=== PATIENT | female | born 2000 | race Caucasian/White ===

== ENCOUNTER 2023-10-04 19:46 | Emergency (ER) | payer BC ==
[2023-10-04 20:07] VITALS: BP 143/95; O2SAT 100
[2023-10-04] MEDS: BACITRACIN ZINC OINT 1 PACKET TOP STA (20:41)
[2023-10-04] MEDS: oxyCODONE 5 MG TABLET PO STA (20:41)
--- NOTE | 2023-10-04 20:58 | ED Physician Documentation ---
PD HPI MAJOR BURN - Stated complaint Stated Complaint: R ARM BURN - Chief complaint Chief Complaint: Burn - History obtained from History obtained from: Patient - Additional information Additional information: Patient is a 23-year-old female with no significant past medical history presenting for evaluation of burn to her right forearm that occurred just prior to arrival. Patient was moving a crockpot and reports that some broth spilled onto her arm. She has been washing the arm in cold water which has been helping with the pain. Her tetanus is up-to-date as she recalls receiving 1 before garcia mejía for [employer]. She is left-hand dominant. Review of Systems Constitutional: denies: Fever Skin: reports: Other (Burn) PD PAST MEDICAL HISTORY - Past Medical History Past Medical History: No - Past Surgical History Past Surgical History: No - Present Medications Home Medications: Ambulatory Orders Medication Instructions Recorded Confirmed Bacitracin Zinc Oint 1 applic TOP BID #1 each 10/04/23 Levonorgestrel/Ethin.estradiol 1 each PO DAILY 10/04/23 10/04/23 [Kurvelo-28 Tablet] Oxycodone HCl/Acetaminophen 1 each PO Q6H PRN #14 tablet 10/04/23 [Percocet 5-325 mg Tablet] - Allergies Allergies/Adverse Reactions: Allergies Allergy/AdvReac Type Severity Reaction Status Date / Time amoxicillin Allergy Hives Verified 10/04/23 20:00 latex Allergy Hives Verified 10/04/23 20:00 - Social History Does the pt smoke?: No Smoking Status: Never smoker Does the pt drink ETOH?: Yes Does the pt have substance abuse?: No - Immunizations Immunizations are current?: Yes - POLST Patient has POLST: No PD ED PE NORMAL - General General: Alert and oriented X 3, No acute distress, Well developed/nourished - HEENT HEENT: Atraumatic - Neck Neck: Supple, no meningeal sign - Cardiac Cardiac: Strong equal pulses - Respiratory Respiratory: No respiratory distress - Extremities Extremities: Other (Blanching erythema to distal forearm on volar and dorsal aspects, no blistering,patient has good range of motion at wrist, No hand or digit Involvement, Compartments soft) - Neuro Neuro: Alert and oriented X 3, No motor deficit, No sensory deficit, Normal speech PD BURN EXAM RULE OF 9S - TBSA Calculation Adult rule of 9s: 1 - Supraficial - 1st 2 - Supraficial - 1st Estimated TBSA: 2 Results - Vitals Vitals: Vital Signs - 24 hr 10/04/23 10/04/23 19:56 21:10 Temperature 36.7 C Heart Rate 93 90 Respiratory 18 18 Rate Blood Pressure 143/95 H O2 Saturation 100 100 Oxygen O2 Source Room air PD Medical Decision Making - ED course Complexity details: re-evaluated patient ED course: Patient is a 23-year-old female presenting for evaluation of burn to right forearm from hot liquid. No involvement of the hand. Good range of motion at left wrist. No blister formation so appears to be a superficial injury.No areas for debridement at this time. Although it is Circumferential around the distal forearm it appears to be a superficial injury at this time with blanching erythema and no blister formation. Bacitracin applied as well as a dressing. Patient given oxycodone for pain control.Neurovascularly intact. Counseled on need for close follow-up as well as strict return precautions for any worsening symptoms. Departure - Departure Disposition: 01 Home, Self Care Clinical Impression: Burn of right forearm Qualifiers: Encounter type: initial encounter Burn degree: superficial (1st degree) Qualified Code(s): T22.111A - Burn of first degree of right forearm, initial encounter Condition: Stable Instructions: ED Burn Scald Follow-Up: [facility] [place] [Provider Group] - Within 3 Days Prescriptions: Bacitracin Zinc Oint 1 applic TOP BID #1 each Oxycodone HCl/Acetaminophen [Percocet 5-325 mg Tablet] 1 each PO Q6H PRN #14 tablet PRN Reason: pain Comments: You have sustained a burn to the right forearm. At this time there is no blistering that requires debridement which is opening up of the blisters and removing any tissue. There is no signs of infection at this time. Is dirty no moralez can be quite painful. I have sent a prescription for pain medication to [facility] in [place]. Also sent a prescription for an antibiotic ointment that you should use twice a day and also wrapped the wound to keep it covered which will also help with pain. You should have close follow-up In approximately 3 days for recheck of the burn to see if there is any blister formation or areas that need to be cleaned up and also to ensure that it Is healing properly. Make sure you elevate the arm to help with any swelling. Return to the ER with any worsening symptoms such as increased pain, abnormal drainage. I am prescribing a short course of narcotic pain medication for you. These are potentially dangerous and addictive medications that should be used carefully. These medications may constipate you. Take an nqkw-cbu-bzycpkx stool softener (docusate) twice daily with plenty of water while taking these medications. If you go 24 hours without a bowel movement, take yppi-gbc-gwjhxhe miralax, per package instructions. Do not drink or drive while taking these medications. If you received narcotic or sedating medications while in the emergency department, do not drive for 24 hours. Store this medication in a safe, secure place and out of reach of children. It is a violation of federal law to give or sell this medication to another person or to use in a manner other than prescribed. The ED will not refill narcotic prescriptions, including prescriptions lost or stolen. To dispose of unwanted medications: 1. [facility] at [address] in [place] has a medication drop box. They accept prescription medications (in pill form) Friday through Friday 9:00 a.m. to 5:00 p.m. 2. [facility] accepts prescription medications (in pill form only) for disposal year round. Call for more information. 3. Contact the [facility] for the next [facility] sponsored prescription drug collection event. , [phone], or [phone]; Note that many narcotic pain relievers also contain Tylenol/acetaminophen. Please ensure that your total dose of acetaminophen from all sources does not exceed 3 g (3000 mg) per day. Forms: PCP List, Activity restrictions Discharge Date/Time: 10/04/23 21:11
[2023-10-04] MEDS: oxyCODONE/ACET 5/325 Prepack 4 PO STA (21:03)
== END 2023-10-04 21:11 | disposition home or self-care (01) ==
LOC: ED 19:46
DX: T22.111A Burn of first degree of right forearm, initial encounter (principal); X12.XXXA Contact with other hot fluids, initial encounter; Y93.G3 Activity, cooking and baking
CPT/HCPCS: 16000; 99282; A9270